=== PATIENT | male | born 1960 | race Caucasian/White ===

== ENCOUNTER 2017-07-04 07:45 | Day surgery (SDC) | payer BC ==
[2017-07-04] MEDS ORDERED: Lactated Ringers 1,000 ML IV SCH (08:00)
[2017-07-04] MEDS ORDERED: Midazolam 1 MG/ML 2 ML SDV IV ONE (09:00)
[2017-07-04] MEDS ORDERED: Propofol 200 MG/20 ML SDV IV ONE (09:00)
[2017-07-04] MEDS ORDERED: Simethicone Drops 40 MG/0.6 ML 30 ML Bottle ONE ×2 (09:15)
--- NOTE | 2017-07-04 09:37 | PCM.OPNOTE ---
- General Post-Op/Procedure Note Date of Surgery/Procedure: 07/04/17 Operative Procedure(s): c scope with bx Findings: cecal, transverse and rectal colon polyps Pre Op Diagnosis: hx of colon polyp Post-Op Diagnosis: cecal, transverse and rectal colon polyps Anesthesia Technique: MAC Primary Surgeon: Marcello Rebollar Anesthesia Provider: Melita Ross Pathology: cecal, transverse and rectal colon polyps Complications: None Condition: Good Free Text/Narrative:: see dictation
--- NOTE | 2017-07-04 10:37 | OR ---
DATE OF OPERATION: 07/04/2017 SURGEON: Marcello Rebollar MD PROCEDURE PERFORMED: Colonoscopy with cold forceps biopsy. PREOPERATIVE DIAGNOSIS: Personal history of colon polyps. POSTOPERATIVE DIAGNOSIS: Cecal polyp, transverse colon polyp, and rectal polyp. INDICATIONS FOR PROCEDURE: This is a 57-year-old white male who presents for a 5-year followup for colonoscopy. On his last scope, he had adenomatous polyp removed and presents now for a followup colonoscopy. DESCRIPTION OF PROCEDURE: After an excellent IV sedation was administered, digital rectal exam was performed. No marked abnormality was noted. Flexible colonoscope was inserted and advanced to the cecum without difficulty. The following findings were noted: At the cecum a small polypoid lesion, biopsied with cold biopsy forceps and sent for permanent. Transverse colon; at the proximal transverse colon, a small polypoid lesion was encountered. This was biopsied with cold biopsy forceps and sent for permanent. Descending colon, unremarkable. Sigmoid, unremarkable. Rectum, polypoid lesion, biopsied with a single bite and sent for permanent. The colon was deflated as the scope was removed. The patient tolerated procedure well and was taken to recovery room in good condition. /[id number] /MODL
[2017-07-04 11:49] VITALS: BP 133/78
== END 2017-07-04 10:52 | disposition home or self-care (01) ==
LOC: FB.SDS 07:45
PROVIDERS: ATTEND Surgery
DX: Z12.11 Encounter for screening for malignant neoplasm of colon (principal); D12.0 Benign neoplasm of cecum; D12.3 Benign neoplasm of transverse colon; K62.1 Rectal polyp; E78.5 Hyperlipidemia, unspecified; G47.33 Obstructive sleep apnea (adult) (pediatric); Z86.010 Personal history of colon polyps; Z79.82 Long term (current) use of aspirin; Z79.899 Other long term (current) drug therapy; Z99.89 Dependence on other enabling machines and devices; Z87.891 Personal history of nicotine dependence
CPT/HCPCS: 45380; 88305; A9270; J2250; J2704; J7120

== ENCOUNTER 2023-07-06 06:56 | Day surgery (SDC) | payer BC ==
[2023-07-06] MEDS ORDERED: Propofol 200 MG/20 ML SDV IV ONE (06:57)
[2023-07-06] MEDS ORDERED: Midazolam 1 MG/ML 2 ML SDV IV ONE (06:57)
[2023-07-06] MEDS ORDERED: fentaNYL 100 MCG/2 ML SDV IV ONE (06:57)
[2023-07-06] MEDS ORDERED: Lactated Ringers 1,000 ML IV ONE (06:57)
[2023-07-06] MEDS ORDERED: Lactated Ringers 1,000 ML IV SCH (07:00)
[2023-07-06] MEDS ORDERED: Sodium Chloride 0.9% 10 ML Syringe FLUSH PRN (07:00)
[2023-07-06] MEDS ORDERED: Simethicone Drops 40 MG/0.6 ML 30 ML Bottle ONE (08:14)
[2023-07-06 11:32] VITALS: BP 147/69; PULSE 56
== END 2023-07-06 09:53 | disposition home or self-care (01) ==
LOC: FB.SDS 06:56
PROVIDERS: ATTEND Surgery
DX: Z12.11 Encounter for screening for malignant neoplasm of colon (principal); K57.30 Diverticulosis of large intestine without perforation or abscess without bleeding; I10 Essential (primary) hypertension; K21.9 Gastro-esophageal reflux disease without esophagitis; E78.5 Hyperlipidemia, unspecified; G47.33 Obstructive sleep apnea (adult) (pediatric); Z87.891 Personal history of nicotine dependence; Z79.82 Long term (current) use of aspirin; Z79.899 Other long term (current) drug therapy
CPT/HCPCS: 00811; 45385; 88305; A9270; J2250; J2704; J3010; J7120

== ENCOUNTER 2024-10-27 14:07 | Inpatient (IN) | payer MEDICARE, BC ==
[2024-10-27 14:46] LABS: HEMATOCRIT 38.8 % (38.3-50.1); HEMOGLOBIN 13.2 g/dL (12.9-17.7); MEAN CORPUSCULAR HEMOGLOBIN 30.7 pg (27.0-33.3); MEAN CORPUSCULAR HGB CONC 34.1 g/dL (28.7-35.3); MEAN CORPUSCULAR VOLUME 90.1 fL (80.8-98.7); MEAN PLATELET VOLUME 8.2 fL (6.7-11.0); PLATELET COUNT,PLT 153 x10(3)uL (117-477); RED BLOOD CELL COUNT 4.31 x10(6)uL (3.90-5.90); RED CELL DISTRIBUTION WIDTH 15.4 % (12.4-15.0); WHITE BLOOD CELL COUNT,WBC 11.7 x10-3/uL (3.2-10.1)
[2024-10-27 14:55] LABS: BASE EXCESS VENOUS,POC -4 mmol/L (-2 - 3+); PCO2 VENOUS,POC 32 mmHg (41-51); PH VENOUS,POC 7.41 pH Units (7.32-7.43)
[2024-10-27 15:03] LABS: A/G RATIO 0.7; ALANINE AMINOTRANSFERASE,ALT 43 U/L (12-36); ALKALINE PHOSPHATASE 72 IU/L (56-112); ASPARTATE AMNIOTRANSFERASE,AST 46 IU/L (5-25); BAND PERCENT MAN 8 % (0-6); BLOOD UREA NITROGEN,BUN 14 mg/dL (7-18); BUN/CREATININE RATIO 5.4 (9-20); CALCIUM 8.2 mg/dL (8.6-10.2); CARBON DIOXIDE,CO2 23 mmol/L (21-32); CHLORIDE,CL 95 mmol/L (100-110); EST CRCL DRUG DOSING (CG) 26.48 mL/min; ESTIMATED GFR 27 mL/min (>60); GLUCOSE RANDOM 139 mg/dL (80-116); LYMPHOCYTES PERCENT MAN 4 % (13-37); METAMYELOCYTE PERCENT MAN 1 % (0-0); MONOCYTES PERCENT MAN 11 % (4-12); POTASSIUM,K 3.5 mmol/L (3.5-5.3); PROTEIN TOTAL,TP 7.1 g/dL (6.0-8.0); SEG NEUTROPHILS PERCENT MAN 76 % (46-82); SODIUM,NA 130 mmol/L (135-145)
[2024-10-27 15:07] LABS: CREATININE 2.6 mg/dL (0.70-1.30)
[2024-10-27] MEDS: Sodium Chloride 0.9% 1,000 ML IV ONE ×2 (15:15→16:14)
[2024-10-27] MEDS: Albuterol/Ipratropium 3.0-0.5 MG/3 ML Neb Soln NEB ONE (16:03)
[2024-10-27] MEDS: LORazepam 2 MG/ML SDV IVPUSH ONE (16:03)
[2024-10-27] MEDS: cefTRIAXone 1 GM Vial IVPUSH SCH (16:06)
[2024-10-27] MEDS: Azithromycin 500 MG in Sodium Chloride 0.9% 250 ML IV SCH (16:16)
[2024-10-27 18:00] LABS: BLOOD UREA NITROGEN,BUN 17 mg/dL (7-18); BUN/CREATININE RATIO 7.1 (9-20); CALCIUM 7.5 mg/dL (8.6-10.2); CARBON DIOXIDE,CO2 22 mmol/L (21-32); CHLORIDE,CL 99 mmol/L (100-110); EST CRCL DRUG DOSING (CG) 28.69 mL/min; ESTIMATED GFR 29 mL/min (>60); GLUCOSE RANDOM 141 mg/dL (80-116); POTASSIUM,K 3.8 mmol/L (3.5-5.3); SODIUM,NA 131 mmol/L (135-145)
[2024-10-27 18:06] LABS: CREATININE 2.4 mg/dL (0.70-1.30)
[2024-10-27] MEDS: Sodium Chloride 0.9% 1,000 ML IV SCH ×2 (19:30→22:53)
[2024-10-27 19:41] LABS: BILIRUBIN,URINE NEGATIVE (NEGATIVE); GLUCOSE,URINE NORMAL (NORMAL); KETONES,URINE NEGATIVE (NEGATIVE); LEUKOCYTE ESTERASE,URINE NEGATIVE (NEGATIVE); NITRITE,URINE NEGATIVE (NEGATIVE); OCCULT BLOOD,URINE NEGATIVE (NEGATIVE); PROTEIN,URINE NEGATIVE (NEGATIVE); UROBILINOGEN,URINE NORMAL (NEGATIVE)
[2024-10-27 19:48] LABS: APPEARANCE,URINE CLEAR (CLEAR); COLOR,URINE YELLOW (YELLOW); RBC,URINE 0-5 (0-5); WBC,URINE 0-5 (0-5)
[2024-10-27 19:49] LABS: BACTERIA,URINE RARE (NS); HYALINE CASTS,URINE FEW (NS); SQUAMOUS EPITHELIAL CELLS,UR RARE (NS,R,O)
[2024-10-27] MEDS ORDERED: methylPREDNISolone Sod Succ 125 MG in Sodium Chloride 0.9% 100 ML IV SCH (20:00)
[2024-10-27] MEDS: methylPREDNISolone Sodium Succinate 125 MG/2 ML SDV IVPUSH SCH (20:48)
[2024-10-27] MEDS: Sodium Chloride 0.9% 10 ML Syringe FLUSH PRN (21:17)
[2024-10-27] MEDS: Enoxaparin 100 MG/1 ML Syringe SUBCUT ONE (21:24)
[2024-10-27] MEDS: Albuterol/Ipratropium 3.0-0.5 MG/3 ML Neb Soln NEB SCH (21:24)
[2024-10-27] MEDS: atorvaSTATin 40 MG Tab PO SCH (21:24)
[2024-10-27] MEDS: Enoxaparin 100 MG/1 ML Syringe ONE (21:27)
[2024-10-28] MEDS: Sodium Chloride 0.9% 1,000 ML IV ONE (00:03)
[2024-10-28] MEDS: Albuterol/Ipratropium 3.0-0.5 MG/3 ML Neb Soln NEB SCH (03:06)
[2024-10-28 07:13] LABS: HEMATOCRIT 35.1 % (38.3-50.1); MEAN CORPUSCULAR HGB CONC 34.3 g/dL (28.7-35.3); MEAN CORPUSCULAR VOLUME 90.4 fL (80.8-98.7); MEAN PLATELET VOLUME 8.4 fL (6.7-11.0); PLATELET COUNT,PLT 143 x10(3)uL (117-477); RED BLOOD CELL COUNT 3.88 x10(6)uL (3.90-5.90); RED CELL DISTRIBUTION WIDTH 15.7 % (12.4-15.0); WHITE BLOOD CELL COUNT,WBC 16.3 x10-3/uL (3.2-10.1)
[2024-10-28 07:21] LABS: BLOOD UREA NITROGEN,BUN 18 mg/dL (7-18); BUN/CREATININE RATIO 10.6 (9-20); CALCIUM 7.7 mg/dL (8.6-10.2); CARBON DIOXIDE,CO2 24 mmol/L (21-32); CHLORIDE,CL 103 mmol/L (100-110); CREATININE 1.7 mg/dL (0.70-1.30); ESTIMATED GFR 44 mL/min (>60); GLUCOSE RANDOM 170 mg/dL (80-116); POTASSIUM,K 3.2 mmol/L (3.5-5.3); SODIUM,NA 137 mmol/L (135-145)
[2024-10-28 07:32] LABS: BAND PERCENT MAN 11 % (0-6); EOSINOPHILS PERCENT MAN 1 % (0-5); LYMPHOCYTES PERCENT MAN 5 % (13-37); METAMYELOCYTE PERCENT MAN 3 % (0-0); MONOCYTES PERCENT MAN 5 % (4-12); MYELOCYTE PERCENT MAN 1 % (0-0); SEG NEUTROPHILS PERCENT MAN 74 % (46-82)
[2024-10-28 07:33] LABS: ANISOCYTOSIS FEW
[2024-10-28] MEDS: Pantoprazole 40 MG Tab.CR PO SCH (08:38)
[2024-10-28] MEDS ORDERED: Losartan 50 MG Tab PO SCH (09:00)
[2024-10-28] MEDS ORDERED: Aspirin 81 MG Tab.Chew PO SCH (09:00)
[2024-10-28] MEDS: Iopamidol 755 Mg/ML 100 ML Bottle IV SCH (11:03)
[2024-10-28 11:13] LABS: INFLUENZA A NAA NEGATIVE (NEGATIVE); INFLUENZA B NAA NEGATIVE (NEGATIVE); RESPIRATORY SYNCYTIAL VIR NAA NEGATIVE (NEGATIVE)
[2024-10-28 11:17] LABS: CORONAVIRUS COVID-19 NAA NEGATIVE (NEGATIVE)
[2024-10-28] MEDS: Potassium Chloride 20 MEQ in Premix Bag 1 BAG IV SCH (12:27)
[2024-10-28] MEDS: Calcium Carbonate 500 MG Tablet PO SCH (12:31)
[2024-10-28] MEDS ORDERED: Benzonatate 100 MG Cap PO PRN (17:02)
[2024-10-28 18:04] LABS: LACTIC ACID 3.3 mmol/L (0.4-2.0)
[2024-10-28] MEDS: Aspirin 81 MG Tab.Chew PO SCH (20:40)
[2024-10-28] MEDS: Heparin Sodium 5,000 Units/ML Vial SUBCUT SCH (20:48)
[2024-10-29 07:04] LABS: HEMATOCRIT 32.9 % (38.3-50.1); HEMOGLOBIN 11.3 g/dL (12.9-17.7); MEAN CORPUSCULAR HEMOGLOBIN 30.8 pg (27.0-33.3); MEAN CORPUSCULAR HGB CONC 34.2 g/dL (28.7-35.3); MEAN CORPUSCULAR VOLUME 90.1 fL (80.8-98.7); MEAN PLATELET VOLUME 8.4 fL (6.7-11.0); PLATELET COUNT,PLT 161 x10(3)uL (117-477); RED BLOOD CELL COUNT 3.65 x10(6)uL (3.90-5.90); WHITE BLOOD CELL COUNT,WBC 12.1 x10-3/uL (3.2-10.1)
[2024-10-29 07:13] LABS: BLOOD UREA NITROGEN,BUN 17 mg/dL (7-18); BUN/CREATININE RATIO 11.3 (9-20); CALCIUM 7.7 mg/dL (8.6-10.2); CARBON DIOXIDE,CO2 22 mmol/L (21-32); CHLORIDE,CL 105 mmol/L (100-110); CREATININE 1.5 mg/dL (0.70-1.30); ESTIMATED GFR 51 mL/min (>60); GLUCOSE RANDOM 216 mg/dL (80-116); SODIUM,NA 140 mmol/L (135-145)
[2024-10-29 07:14] LABS: POTASSIUM,K 2.7 mmol/L (3.5-5.3)
[2024-10-29 07:23] LABS: LYMPHOCYTES PERCENT MAN 4 % (13-37); MONOCYTES PERCENT MAN 2 % (4-12); SEG NEUTROPHILS PERCENT MAN 94 % (46-82)
[2024-10-29 07:24] LABS: ANISOCYTOSIS FEW
[2024-10-29] MEDS: Potassium Chloride 20 MEQ in Premix Bag 1 BAG IV SCH ×2 (08:40→16:46)
[2024-10-29 11:01] LABS: ALBUMIN 2.5 g/dL (3.2-4.6); BILIRUBIN DIRECT 0.13 mg/dL (0.10-0.20); BILIRUBIN TOTAL 0.3 mg/dL (0.1-1.3); PROTEIN TOTAL,TP 6.6 g/dL (6.0-8.0)
[2024-10-29] MEDS ORDERED: Albuterol/Ipratropium 3.0-0.5 MG/3 ML Neb Soln NEB PRN (12:11)
[2024-10-29] MEDS: cefTRIAXone 2 GM Vial IVPUSH SCH (15:27)
[2024-10-29 22:35] LABS: CREATININE,URINE - PER VOLUME 31 mg/dL; HOURS COLLECTED Not Provided hr; TOTAL VOLUME Not Provided mL; URINE UREA NITROGEN - MG/DL 275 mg/dL
[2024-10-30 06:11] LABS: HEMATOCRIT 31.5 % (38.3-50.1); HEMOGLOBIN 10.8 g/dL (12.9-17.7); MEAN CORPUSCULAR HEMOGLOBIN 30.7 pg (27.0-33.3); MEAN CORPUSCULAR HGB CONC 34.4 g/dL (28.7-35.3); MEAN CORPUSCULAR VOLUME 89.5 fL (80.8-98.7); MEAN PLATELET VOLUME 8.6 fL (6.7-11.0); PLATELET COUNT,PLT 177 x10(3)uL (117-477); RED BLOOD CELL COUNT 3.52 x10(6)uL (3.90-5.90); WHITE BLOOD CELL COUNT,WBC 11.6 x10-3/uL (3.2-10.1)
[2024-10-30 06:21] LABS: BLOOD UREA NITROGEN,BUN 16 mg/dL (7-18); BUN/CREATININE RATIO 13.3 (9-20); CALCIUM 7.8 mg/dL (8.6-10.2); CARBON DIOXIDE,CO2 23 mmol/L (21-32); CHLORIDE,CL 108 mmol/L (100-110); CREATININE 1.2 mg/dL (0.70-1.30); EST CRCL DRUG DOSING (CG) 57.38 mL/min; ESTIMATED GFR 67 mL/min (>60); GLUCOSE RANDOM 143 mg/dL (80-116); POTASSIUM,K 3.9 mmol/L (3.5-5.3); SODIUM,NA 141 mmol/L (135-145)
[2024-10-30 06:41] LABS: LYMPHOCYTES PERCENT MAN 5 % (13-37); MONOCYTES PERCENT MAN 2 % (4-12); SEG NEUTROPHILS PERCENT MAN 93 % (46-82)
[2024-10-30] MEDS: Hydrochlorothiazide 12.5 MG Cap PO SCH (09:45)
[2024-10-30] MEDS: Losartan 50 MG Tab PO SCH (09:45)
[2024-10-30 09:55] VITALS: PULSE 55
[2024-10-30 10:57] VITALS: BP 142/90
[2024-10-30 14:22] LABS: CREATININE,URINE - PER VOLUME 31 mg/dL; HOURS COLLECTED Not Provided hr; TOTAL VOLUME Not Provided mL
[2024-10-31 00:10] LABS: STREPTOCOCCUS PNEUMONIAE AG,UR Negative (Negative)
[2024-10-31 13:27] LABS: LEGIONELLA PNEUMOPHILA AG,URN Negative (Negative)
== END 2024-10-30 12:15 | disposition home or self-care (01) | DRG 194 ==
LOC: FB.ED 14:07 → FB.MS 18:28 → OBSVTOIN 10-28 10:53
PROVIDERS: ADMIT Internal Medicine; ATTEND Internal Medicine
DX: J18.9 Pneumonia, unspecified organism (principal); N28.9 Disorder of kidney and ureter, unspecified; E87.1 Hypo-osmolality and hyponatremia; E87.20 Acidosis, unspecified; E88.09 Other disorders of plasma-protein metabolism, not elsewhere classified; N17.9 Acute kidney failure, unspecified; H54.7 Unspecified visual loss; E78.00 Pure hypercholesterolemia, unspecified; I10 Essential (primary) hypertension; G47.30 Sleep apnea, unspecified; Z68.32 Body mass index [BMI] 32.0-32.9, adult; E66.9 Obesity, unspecified; R79.89 Other specified abnormal findings of blood chemistry; E87.6 Hypokalemia; E83.51 Hypocalcemia; E86.0 Dehydration; K21.9 Gastro-esophageal reflux disease without esophagitis; E80.6 Other disorders of bilirubin metabolism; K76.0 Fatty (change of) liver, not elsewhere classified; F10.10 Alcohol abuse, uncomplicated; Z79.02 Long term (current) use of antithrombotics/antiplatelets; Z79.82 Long term (current) use of aspirin; Z79.899 Other long term (current) drug therapy; Z98.52 Vasectomy status; Z98.890 Other specified postprocedural states; Z87.891 Personal history of nicotine dependence; Z68.34 Body mass index [BMI] 34.0-34.9, adult
CPT/HCPCS: 0241U; 36415; 71275; 80048; 80053; 80076; 81001; 82570; 83605; 83735; 84132; 84295; 84484; 84540; 85025; 85379; 86140; 87040; 87449; 87899; 93005; 94150; 94640; 96361; 96374; 99285; 96372; 96375; 96376; 99223; 99232; 99238; A9270-GY; G0378; J0456; J0696; J1644; J1650; J2060; J2919; J3480; J7030; J7050; Q9967

== ENCOUNTER 2024-11-28 06:50 | Day surgery (SDC) | payer MEDICARE, BC ==
[2024-11-28] MEDS ORDERED: fentaNYL 100 MCG/2 ML SDV IV ONE (06:51)
[2024-11-28] MEDS ORDERED: Propofol 200 MG/20 ML SDV IV ONE (06:51)
[2024-11-28] MEDS ORDERED: Midazolam 1 MG/ML 2 ML SDV IV ONE (06:51)
[2024-11-28] MEDS ORDERED: Sodium Chloride 0.9% 10 ML Syringe FLUSH PRN (07:00)
[2024-11-28] MEDS: Lactated Ringers 1,000 ML IV SCH (07:42)
[2024-11-28] MEDS: Simethicone Drops 40 MG/0.6 ML 30 ML Bottle ONE (08:06)
[2024-11-28 09:41] VITALS: PULSE 57
[2024-11-28 09:42] VITALS: BP 162/77
== END 2024-11-28 09:30 | disposition home or self-care (01) ==
LOC: FB.SDS 06:50
PROVIDERS: ATTEND Surgery
DX: Z12.11 Encounter for screening for malignant neoplasm of colon (principal); D12.6 Benign neoplasm of colon, unspecified; K52.9 Noninfective gastroenteritis and colitis, unspecified; K57.30 Diverticulosis of large intestine without perforation or abscess without bleeding; K40.90 Unilateral inguinal hernia, without obstruction or gangrene, not specified as recurrent; I10 Essential (primary) hypertension; E78.5 Hyperlipidemia, unspecified; Z80.0 Family history of malignant neoplasm of digestive organs; Z79.82 Long term (current) use of aspirin; Z86.0101 Personal history of adenomatous and serrated colon polyps; Z79.899 Other long term (current) drug therapy; Z87.891 Personal history of nicotine dependence
CPT/HCPCS: 00811; 88305; A9270-GY; J2250; J2704; J3010; J7120